=== PATIENT | male | born 1975 ===

== ENCOUNTER 2019-03-09 16:34 | Emergency (ER) | payer OTHER ==
[2019-03-09 16:38] VITALS: BP 143/98; PULSE 75; RESP 16; TEMP 98; O2SAT 98
--- NOTE | 2019-03-09 17:02 | ED PDOC ---
Lower Extremity Pain/Injury Time Seen by Provider: 03/09/19 16:44 Chief Complaint (Nursing): Lower Extremity Problem/Injury Chief Complaint (Provider): Lower Extremity Problem/Injury History Per: Patient History/Exam Limitations: no limitations Current Symptoms Are (Timing): Still Present Additional Complaint(s): Patient is a 43 year old male with no past medical history, who presents to the emergency department complaining of pain to the right knee. He states he was standing outside at work and was accidentally struck in the knee by a golf ball. Patient is unaware of where it came from and states he is unable to put weight on it. He states that pain is also along his hyman and that he is unable to bend his leg. Patient states he feels tingling in his lower leg near his foot. He rates the pain as a 10/10. Denies any other injury to the leg in the past. PMD: No provider Past Medical History Reviewed: Historical Data, Nursing Documentation, Vital Signs Vital Signs: Last Vital Signs Temp 98 F 03/09/19 16:36 Pulse 75 03/09/19 16:36 Resp 16 03/09/19 16:36 BP 143/98 H 03/09/19 16:36 Pulse Ox 98 03/09/19 16:36 Primary Care Provider: FAMILY PROVIDER,NO - Medical History PMH: No Chronic Diseases - Surgical History Surgical History: No Surg Hx - Family History Family History: States: Unknown Family Hx - Home Medications Home Medications: Ambulatory Orders Medication Instructions Recorded Ibuprofen [Motrin Tab] 800 mg PO Q8 PRN #16 tab 03/09/19 - Allergies Allergies/Adverse Reactions: Allergies Allergy/AdvReac Type Severity Reaction Status Date / Time No Known Allergies Allergy Verified 03/09/19 16:36 Review of Systems ROS Statement: Except As Marked, All Systems Reviewed And Found Negative Musculoskeletal: Positive for: Other (right knee pain) Neurological: Positive for: Numbness (right lower leg) Physical Exam - Reviewed Nursing Documentation Reviewed: Yes Vital Signs Reviewed: Yes - Physical Exam Comments: GENERAL APPEARANCE: Patient is awake, alert, oriented x 3, in mild obvious discomfort SKIN: Warm, dry; (-) cyanosis. CHEST AND RESPIRATORY: (-) chest wall tenderness. Lungs: (-) rales, (-) rhonchi, (-) wheezes; breath sounds equal bilaterally. HEART AND CARDIOVASCULAR: (-) irregularity; (-) murmur, (-) gallop. EXTREMITIES: RLE: (+) right lateral knee with swelling and tenderness; (+) reduced ROM, refused to flexed due to pain (+) capillary refill less than two seconds; (+) distal pulses 2+ (+) reported tingling sensation on bottom of right foot, motor and sensation intact, NVI, (-)deformity NEURO AND PSYCH: Mental status as above. - ECG O2 Sat by Pulse Oximetry: 98 (RA) Pulse Ox Interpretation: Normal Medical Decision Making Medical Decision Making: Time: 1649 Impression: Right knee injury Plan: --Motrin 800 mg PO --Right knee xray with patella 3 views xr report Date of service: 03/09/2019 PROCEDURE: Right Knee Radiographs. HISTORY: injury, patella pain, decrease rom COMPARISON: None. TECHNIQUE: 2 views obtained. FINDINGS: BONES: Normal. No fracture. JOINTS: Normal. No osteoarthritis. JOINT EFFUSION: None. OTHER FINDINGS: None. IMPRESSION: No acute findings related to/ accounting for the clinical presentation. 18:45 on re eval pt continues with same pain, unable to flex, reported tingling, NVI, pulses +2, cap refill <2sec due to pain and only 2 views on xray will get CT of knee to ensure no missed fracture pt does not want anything else for pain, reports he does not want any narcotics 2039 EXAM: CT right Knee, without IV contrast CLINICAL HISTORY: Rt knee injury, unable to bend TECHNIQUE: Axial images were acquired through the right knee without IV contrast. Reformatt ed images were reviewed. 295.58 mGy-cm COMPARISON: Comparison is made to radiographic evaluation of the right knee performed earlier the same date. FINDINGS: BONES: No acute fracture or aggressive appearing osseous lesion. Small sclerotic foci are seen in the medial femoral condyle thought consistent with small bone islands. JOINTS: No dislocation. The joint spaces are normal. SOFT TISSUES: There is mild anterior prepatellar soft tissue swelling noted in the sagittal reconstructed images. IMPRESSION: No acute osseous abnormality. Mild anterior prepatellar soft tissue swelling noted. Electronically signed on Mar 09, 2019 8:33:17 PM EDT by: Kei Vee M.D., M.B.A., Certified By [employer] Trained MRI and CT Specialist kalia wrap, knee immbolizer and crutches applied by media production manager, checked by me pt continues to refuse ROM due to pain, though reports mild improvement of pain, NVI Discussed results, diagnosis, treatment, return precautions and f/u with pt who is understanding, in agreement and stable for dc Scribe Attestation: Documented by Nilay Conn, acting as a scribe for BETTINA Veras. Provider Scribe Attestation: All medical record entries made by the Scribe were at my direction and personally dictated by me. I have reviewed the chart and agree that the record accurately reflects my personal performance of the history, physical exam, medical decision making, and the department course for this patient. I have also personally directed, reviewed, and agree with the discharge instructions and disposition. Disposition - Clinical Impression Clinical Impression: Right knee injury, Derangement, knee internal - Patient ED Disposition Is Patient to be Admitted: No Counseled Patient/Family Regarding: Studies Performed, Diagnosis, Need For Followup, Rx Given - Disposition Referrals: Adolfo Rubio III, MD [Staff Provider] - [facility] [Outside] workers, comp [Other] Disposition: Routine/Home Disposition Time: 20:54 Condition: STABLE Additional Instructions: Thank you for letting us take care of you today. Rest, ice and elevate your leg. Wear kalia wrap for compression, knee immbolizer for support and crutches for non weight bearing. Take Ibuprofen for pain and swelling. Follow up with workers comp or orthopedist as listed. The emergency medical care you received today was directed at your acute symptoms. If you were prescribed any medication, please fill it and take as directed. It may take several days for your symptoms to resolve. Return to the Emergency Department if your symptoms worsen, do not improve, or if you have any other problems. Please contact your doctor in 2 days for re-evaluation and follow up / or call one of the physicians/clinics you have been referred to that are listed on the Patient Visit Information form that is included in your discharge packet. Bring any paperwork you were given at discharge with you along with any medications you are taking to your follow up visit. Our treatment cannot replace ongoing medical care by a primary care provider (PCP) outside of the emergency department. Prescriptions: Ibuprofen [Motrin Tab] 800 mg PO Q8 PRN #16 tab PRN Reason: Pain, Moderate (4-7) Instructions: Internal Derangement of the Knee, Knee Sprain (DC), Knee Pain (DC) Forms: [employer] (Niuean), [facility] ED School/Work Excuse Print Language: DANISH - POA Present On Arrival: None
--- NOTE | 2019-03-09 18:32 | RAD ---
Date of service: 03/09/2019 PROCEDURE: Right Knee Radiographs. HISTORY: injury, patella pain, decrease rom COMPARISON: None. TECHNIQUE: 2 views obtained. FINDINGS: BONES: Normal. No fracture. JOINTS: Normal. No osteoarthritis. JOINT EFFUSION: None. OTHER FINDINGS: None. IMPRESSION: No acute findings related to/ accounting for the clinical presentation.
--- NOTE | 2019-03-10 14:27 | CT ---
Date of service: 03/09/2019 PROCEDURE: CT of the right knee. HISTORY: knee, injury, unable to bend COMPARISON: Plain radiographs performed the same day. TECHNIQUE: Contiguous axial images of the right knee were obtained. Coronal and sagittal reformats were generated. Radiation dose: Total exam DLP = 295.58 mGy-cm. This CT exam was performed using one or more of the following dose reduction techniques: Automated exposure control, adjustment of the mA and/or kV according to patient size, and/or use of iterative reconstruction technique. FINDINGS: BONES: There is diffuse bone demineralization. There is no acute displaced fracture or bone destruction. Bone alignment is normal. There is mild tricompartmental degenerative osteoarthrosis with reduced joint spaces, marginal osteophytes and tibial spiking, worse in the medial compartment. SOFT TISSUES: There is mild anterior prepatellar soft tissue swelling. The periarticular muscles are normal. IMPRESSION: No acute displaced fracture or dislocation. Mild anterior prepatellar soft tissue swelling. A preliminary report was provided by [facility].
== END 2019-03-09 21:30 | disposition home or self-care (01) ==
LOC: H.ER 16:34
DX: S89.91XA Unspecified injury of right lower leg, initial encounter (principal); M23.91 Unspecified internal derangement of right knee; W20.8XXA Other cause of strike by thrown, projected or falling object, initial encounter